=== PATIENT | female | born 1970 | race Caucasian/White ===

== ENCOUNTER 2021-06-09 16:44 | Emergency (ER) | payer OTHER ==
[~2021-06-09] VITALS: Ht 157.5 cm; Wt 69.9 kg
[2021-06-09] MEDS ORDERED: NEURONTIN300 MG PO (17:02)
[2021-06-09] MEDS ORDERED: SODIUM CHLORIDE 0.9% 1000ML 1,000 ML IV STA (17:09)
[2021-06-09] MEDS ORDERED: KETOROLAC TROMETHAMINE 30 MG/ML VIAL IV ONE (17:15)
[2021-06-09] MEDS ORDERED: ONDANSETRON HCL INJ 2MG/ML 2ML 2 MG/ML VIAL IV ONE (17:15)
[2021-06-09] MEDS ORDERED: IOPAMIDOL 370 MG/ML 200 ML INFUS..BTL INJ ONE (17:27)
[2021-06-09] MEDS ORDERED: SODIUM CHLORIDE 0.9% 50ML 50 ML ONE (17:27)
[2021-06-09] MEDS ORDERED: KETOROLAC TROMETHAMINE 30 MG/ML VIAL ONE (17:58)
[2021-06-09] MEDS ORDERED: SODIUM CHLORIDE 0.9% 1000ML 1,000 ML ONE (17:58)
[2021-06-09] MEDS ORDERED: ONDANSETRON HCL INJ 2MG/ML 2ML 2 MG/ML VIAL ONE (17:58)
[2021-06-09] MEDS ORDERED: FAMOTIDINE 20 MG/2 ML VIAL IV ONE (19:00)
[2021-06-09] MEDS ORDERED: ONDANSETRON ODT4 MG PO (19:12)
[2021-06-09] MEDS ORDERED: OMEPRAZOLE20 M2 PO (19:12)
[2021-06-09] MEDS ORDERED: ULTRAM 50MG50 MG PO (19:12)
== END 2021-06-09 19:45 | disposition home or self-care (01) ==
LOC: FSED 17:09
DX: R10.32 Left lower quadrant pain (principal); K57.90 Diverticulosis of intestine, part unspecified, without perforation or abscess without bleeding; Z98.84 Bariatric surgery status
CPT/HCPCS: 74177; 80053; 81003; 81025; 85025; 96374; 96375; 99284; J1885; J2405; J7030; Q9967

== ENCOUNTER 2021-07-20 16:17 | Emergency (ER) | payer MEDICAID ==
[~2021-07-20] VITALS: Ht 157.5 cm; Wt 68.0 kg
[~2021-07-20 16:17] MED LIST: NEURONTIN300 MG PO; OMEPRAZOLE20 M2 PO; ONDANSETRON ODT4 MG PO; ULTRAM 50MG50 MG PO
[2021-07-20] MEDS ORDERED: ONDANSETRON ODT4 MG PO (16:52)
[2021-07-20] MEDS ORDERED: DICYCLOMINE HCL20 MG PO (16:53)
[2021-07-20] MEDS ORDERED: KETOROLAC TROMETHAMINE 60 MG/2 ML VIAL IM ONE (17:00)
[2021-07-20] MEDS ORDERED: ONDANSETRON HCL 4 MG ORAL DISINTEGRATING TAB PO ONE (17:00)
== END 2021-07-20 17:24 | disposition home or self-care (01) ==
LOC: FSED 16:35
DX: R10.32 Left lower quadrant pain (principal); K59.00 Constipation, unspecified; R11.2 Nausea with vomiting, unspecified; M54.50 Low back pain, unspecified; G89.29 Other chronic pain
CPT/HCPCS: 99282; J1885; Q0162